=== PATIENT | male | born 1970 | race Caucasian/White ===

== ENCOUNTER → 2016-12-16 | Day surgery (SDC) | payer OTHER ==
[2016-12-15 08:18] VITALS: Ht 177.8 cm; Wt 98.2 kg
[~2016-12-16] VITALS: Ht 177.8 cm; Wt 98.2 kg
[~2016-12-16] MED LIST: 500ML BSSPLUS 0.5ML EPI1:1000 IRRIG ONE; ACETAMINOPHEN 325 MG TAB PO PRN; ATROPINE SULFATE 0.1 MG/ML 5ML SYR IV PRN; ATROPINE SULFATE 1% OP OINT PER APPLICATION CHARGE ONE; BSS FLUSH ONE; BUPIVACAINE HCL 0.75% 10 ML AMP/VIAL ONE; CEFAZOLIN SOD 1 GM VIAL ONE; DEXAMETHASONE SOD INJ 4 MG/ML VIAL ONE; EpHEDrine SULFATE INJ 50 MG/ML AMP IV PRN; EpINEphrine INJ 1MG/ML AMP 1 MG/ML AMP ONE; FENTANYL CITRATE INJ 50 MCG/1 ML 2 ML VIAL IV PRN; FENTANYL CITRATE INJ 50 MCG/1 ML 2 ML VIAL ONE; FLUMAZENIL 0.1 MG/1 ML 10 ML VIAL IV PRN; HYALURONIDASE HUMAN 150 UNIT/ML INJ ONE; HYDROmorphone INJ 2 MG/ML SYR/VIAL IV PRN; LABETALOL HCL IV 5 MG/ML 20ML IV PRN; LACTATED RINGER'S 1000ML 500 ML IV SCH; LIDOCAINE HCL 2% 2 ML VIAL (20MG/ML) ONE; LIDOCAINE MPF 4% INJ INJ ONE; MEPERIDINE HCL 25 MG/ML CARP IV PRN; MIDAZOLAM HCL 1 MG/ML 2ML VIAL ONE; NALOXONE HCL 0.4 MG/1 ML VIAL/CARP IV PRN; NEOMYCIN/POLYMYX/DEXAMETH OP OINT PER APP CHARGE ONE; OCUCOAT 1 ML SOLN IO ONE; ONDANSETRON INJ 2 MG/ML 2 ML VIAL IV PRN; ONDANSETRON INJ 2 MG/ML 2 ML VIAL ONE; PHENYLEPHRINE 100MCG/ML 5ML SYR IV PRN; PROPARACAINE 0.5% OP SOLN PER DROP CHARGE OPR SCH; PROPOFOL IV EMULSION 10 MG/ML 20 ML VIAL IV ONE; TIMOLOL MALEATE 0.5% OP SOLN PER DROP CHARGE ONE; TRIAMCINOLONE ACETONIDE OPHTH 40 MG/ML VIAL STERILE IO ONE
[2016-12-16] MEDS: PHENYLEPHRINE HCL 2.5% OP SOLN PER DROP CHARGE OPR SCH ×2 (12:40→12:45)
[2016-12-16] MEDS: TROPICAMIDE 1% OP SOLN PER DROP CHARGE OPR SCH ×2 (12:41→12:46)
--- NOTE | 2016-12-16 13:32 | History & Physical Bridge - [place] ---
H&P Re-Evaluation Bridge Note: Pt has a retinal detachment of the right eye and is having vitrectomy in the right eye. I have examined the patient, reviewed the History & Physical and in the interval since the performance of the History & Physical I have noted the following changes of clinical significance: No changes noted
--- NOTE | 2016-12-16 14:45 | [facility] Operative Report ---
Operative Report PREOPERATIVE DIAGNOSIS: Total retinal detachment, right eye eye. ICD 10: H33.011 POSTOPERATIVE DIAGNOSIS: same. PROCEDURE: 1. Pars plana vitrectomy, 23 gauge. 2. Fluid-air exchange. 3. Endolaser. 4. Air-gas exchange with SF6 20%. All to the right eye. CPT CODE: 30223 SURGEON: Sean May D.O. COMPLICATIONS: None. ESTIMATED BLOOD LOSS: None. SPECIMENS: None. ANESTHESIA: Retrobulbar block and MAC. INDICATIONS FOR PROCEDURE: Surgery is indicated to decrease risk of vision loss and potentially improve vision. CONSENT: The risks, benefits and alternatives were discussed with the patient including but not limited to decreased visual acuity, failure to achieve desired results, loss of the eye, infection, pain, glaucoma, lens changes, retinal tears, retinal detachment, the need for more procedures, drooping of the eyelid, blindness, and double vision. The patient is aware of risks and consents to the surgery. Consent is signed and on the chart. OPERATION AND FINDINGS: The patient was brought to the operating room where the patient was identified by name, date, and medical record number. The surgical site was confirmed with the informed written consent. The patient was sedated by the anesthesiology team after which a 50:50 mixture of 4% lidocaine and 0.75% bupivacaine with hyaluronidase was administered in a standard retrobulbar fashion. A total of 4 ml was administered without difficulty. The patient was then prepped and draped in the usual sterile manner for retinal surgery. A wire lid speculum was placed and an Asael 23-gauge trocar cannula system was employed. The inferior temporal trocar cannula was first placed in an angled fashion 3.75mm posterior to the surgical limbus and the infusion cannula was inserted into this cannula after which the intravitreal position was verified prior to turning the infusion on. Two more trocar cannulas were then inserted in an angled fashion, one in the superior temporal, and one in the superior nasal quadrant both 3.75mm posterior to the surgical limbus. A light pipe and vitrector were then introduced into the eye and the BIOM wide angle viewing system was brought into place. Posterior inspection revealed a total retinal detachment with the inciting retinal break at 12 o'clock. Standard core vitrectomy was performed and the vitreous was insured to be totally detached from the posterior pole with the aid of the vitrector. The vitreous base was shaved for 360 degrees. At this point scleral depression was performed for 360 degrees and no other retinal tears were noted. Fluid air exchange was performed and the subretinal fluid was drained through a small retinotomy site that was fashioned superior to the optic nerve. Endolaser was then used to place laser around the inciting retinal break and the drainage retinotomy and superior nasally due to a questionable area posterior to a meridional fold. Next, an air gas exchange was performed with SF620% for a complete fill of the eye. The trocar cannulas were then removed and found to be air tight. The intraocular pressure was found to be within normal limits by palpation and subconjunctival injections of Kefzol and dexamethasone were administered inferiorly and superiorly. The wire lid speculum was removed. Maxitrol, atropine and timolol were applied to the surface of the eye. A light patch and shield were taped over the surface of the eye and the patient left the Operating Room in stable condition having tolerated the procedure well. DISPOSITION: A gas bracelet was placed on the patient's wrist and gas precautions reviewed as well as the positioning instructions. The patient has an appointment the following morning in the Ophthalmology Clinic. The patient is to call immediately if there are any problems overnight. I attest to the content of the Intraoperative Record and any orders documented therein. Any exceptions are noted below.
--- NOTE | 2016-12-16 14:47 | Discharge Instructions-SurgCtr ---
Discharge Instructions Visit Reason for Visit: Right Eye Retinal Detachment Discharge Discharge Diagnosis / Problem: same Discharge Goals Goal(s): Improve function Activity Recommendations Activity Limitations: per Instructions/Follow-up section Anesthesia . Post Anesthesia Instructions: If you have had General Anesthesia or IV Sedation: * Do not drive today. * Resume driving when surgeon permits. * Do not make important decisions or sign legal documents today. * Call surgeon for: 1. Temperature elevations greater than 101 degrees F. 2. Uncontrollable pain. 3. Excessive bleeding. 4. Persistent nausea and vomiting. 5. Medication intolerance (nausea, vomiting or rash). * For nausea and vomiting use only clear liquids such as: tea, soda, bouillon until nausea subsides, then gradually increase diet as tolerated. * If you have any concerns or questions, call your surgeon's office. If physician is unavailable and it is an emergency, call 911 or go to the nearest emergency room. . Instructions / Follow-Up Instructions / Follow-Up * May take Tylenol if needed for discomfort. * Do NOT lay flat on back and position head as follows: face forward,chin down or face down. May sleep on right side with head elevated. * Do NOT remove green bracelet until instructed to do so by your surgeon and follow these precautions: * No air travel * No travel above 2500 feet * No nitrous oxide (N2O). * Do NOT remove eye shield. * NO straining, heavy lifting (>15 pounds) or bending below waist. * Avoid getting water or soap directly into operative eye. * Do NOT rub eye. If you experience increasing eye pain not relieved by medication, please contact us immediately at [phone]. If you are unable to reach someone at the above number, call [phone] and ask to speak with the EYE DOCTOR DOOR PATCHER. Inform them that you are a Dr. May patient who had recent surgery. Diet Recommendations Home Diet: resume previous diet Procedures Procedures Performed: Right Eye 23 Gauge Vitrectomy, Endolaser, SF6Gas Insertion Pending Studies Studies pending at discharge: no Medical Emergencies . Who to Call and When: Medical Emergencies: If at any time you feel your situation is an emergency, please call 911 immediately. . Non-Emergent Contact Non-Emergency issues call your: Cardiac Catheterization Technologist . . "Provider Documentation" section prepared by Sean May.
--- NOTE | 2016-12-16 14:57 | Anesthesia Progress Nt - [facility] ---
Anesthesia Post Op Note Date & Time Dec 16, 2016 at 14:57 Vital Signs Pain Intensity: 0 Vital Signs Past 12 Hours Date Time Temp Pulse Resp B/P Pulse Ox O2 Delivery O2 Flow Rate FiO2 12/16/16 14:40 36.6 86 16 136/98 93 Room Air 12/16/16 12:34 37.0 77 20 151/95 96 Room Air Notes Mental Status: alert / awake / arousable, participated in evaluation Pt Amnestic to Procedure: Yes Nausea / Vomiting: adequately controlled Pain: adequately controlled Airway Patency, RR, SpO2: stable & adequate BP & HR: stable & adequate Hydration State: stable & adequate Anesthetic Complications: no major complications apparent
[2016-12-16 15:07] VITALS: BP 127/96; PULSE 80; O2SAT 94
== END | disposition home or self-care (01) ==
LOC: X.SURG 12:13
PROVIDERS: ATTEND Ophthalmology
DX: H33.051 Total retinal detachment, right eye (principal)

== ENCOUNTER 2021-05-30 00:26 | Inpatient (IN) ==
[2021-05-30] MEDS ORDERED: ASPIRIN 81 MG CHEW PO STA (00:53)
[2021-05-30] MEDS ORDERED: LABETALOL HCL IV 5 MG/ML 20ML IV STA (00:53)
--- NOTE | 2021-05-30 00:57 | Emergency Department Note ---
Impression & Plan Non-ST elevation RI (NSTEMI), Acute renal insufficiency, Hypertension ED Provider Note Name: MELVI CHEN Age: 50 Sex: M Arrives Via: Walk-In Informant: Patient ED Provider: Ismael Valdez MD Chief Complaint: Chest Pain Impression: NSTEMI Acute Renal Insufficiency Hypertension Medical Decision Makin yr old male with history renal colic though no issues for last few days. Does not follow with a PCP. Family history of early cardiac disease in Mother who had CABG at 45 yrs old. He arrives with 30 min episode substernal to left chest pressure/heaviness associated with feeling of difficulty taking a breath. Symptoms resolved prior to arrival. Quite hypertensive and otherwise a bit anxious. Exam benign with good pulses and benign abdomen. EKG with no STEMI though frequent PCVs/PACs/bigeminy. Given ASA 324mg PO and small dose Labetalol for HTN with gradual improvement in BP. Post Labetalol rhythm clearly NSR with far less PAC/PVCs. CXR without acute findings and has normal mediastinum. Labs quite lipemic thus unable to run several. Creatinine is a bit bumped of uncertain etiology. Denies flank pain like previous stones, not overtly dehydrated, and no abdominal pain/ttp nor urinary symptoms. Troponin is elevated consistent with recent cardiac event. While Cr may be somewhat to blame risks are quite high this is ACS. Given familial history, and untreated HTN, hyperlipidemia in setting of relatively classic chest pain symptoms, I explained to patient my concern being ACS. No contraindications to Heparin at this time and after verbal consult understanding risks this was ordered. Symptoms not consistent with dissection nor are findings with normal cxr mediastinum, no current pain, no pain to back and normal pulses. Hospitalist consulted for further management. Prior Medical Record and Triage/Nursing Notes reviewed by Me Additional history obtained from chart Differentials:Cardiac ischemia, aortic dissection, pulmonary embolism, pneumothorax, pneumonia, pericarditis, myocarditis, esophageal rupture, GERD, cholecystitis, pancreatitis, musculoskeletal, as well as other pathologies. Vital Signs: reviewed and remarkable for no significant abnormalities Interventions: Saline lock, labetalol 10mg IV, ASA 324mg PO, Heparin bolus/gtt Labs:Reviewed and remarkable for elevated cr, elevated trop Imaging:X ray results are stated below per my interpretation: Chest: 1 view: No infiltrate, no effusion, normal cardiac border. EKG:Per My Interpretation: Indication Chest pain: NSR though 102 bpm including frequent PAC/PVC, bigeminy and qtc 458. No stemi appreciated, and no previous EKG for review. Cardiac/Tele Monitoring: Cardiac Monitoring: An Order was placed for continuous cardiac monitoring. The monitor shows a rate of 80 with a normal sinus rhythm. Consults:Dr Ranjit RICARDO Hospitalist Plan: Disposition:Hospitalization. Condition: Good History of Present Illness:50 yr old male arrives for evaluation of chest pain. Patient notes he was feeling well the last few days. Was going to bed tonight and developed chest pain. He notes tight chest pain like something sitting on his chest. Left upper and substernal. Mild feeling of difficulty taking a deep breath and had palpitations. Denies syncope, lightheaded, abdominal pain, flank pain, fevers, chills, urinary symptoms, nausea, vomiting, back pain, calf pain/swelling, nor other symptoms. No recent black/bloody stools, headache, bleeding, nor PUD/GERD. No previous cardiac issues. Significant other checked BP and it was elevated with SBP > 200. En route to hospital symptoms resolved. He did Tylenol prior to arrival. No previous cardiac work up. No smoking history. Mother with RI in her 40s requiring CABG. No trauma/falls/injuries. No recent travel. Nothing seemed to make pain worse nor better. ROS: See above HPI for pertinent positives & negatives. A total of 10 systems reviewed and were otherwise negative. 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 EYES: No scleral icterus, unremarkable pupils. ENT: Mucous membranes moist, no nasal congestion. NECK: No masses appreciated, nomeningismus, trachea is midline. RESPIRATORY: No dyspnea. Clear to auscultation and equal bilaterally. No wheeze, no rhonchi. CARDIOVASCULAR: Regular rate and rhythm with periodic skipped/extra beats.No murmurs, rubs, gallops appreciated. GASTROINTESTINAL: Abdomen soft, non-tender, no peritonitis.Bowel sounds positive.No masses appreciated. BACK: No midline tenderness, no CVA tenderness EXTREMITIES: Normal motion all extremities, no cyanosis, no edema. NEUROLOGIC: Alert and oriented, no acute motor or sensory deficits, no focal weakness, cranial nerves grossly intact. SKIN: No rash, no jaundice, no diaphoresis. PSYCH: Appropriate GCS: 15 ED Course: Times/Reassessments: No further pain, a bit anxious about situation. BP improving. Agreeable to heparin and hospitalization. Critical Care: I have personally spent 30 minutes of critical care time in the direct management of this patient. Acute NSTEMI and started on heparin. This was a life/limb threatening event. This 30 minutes is in excess of all separately billable procedures. 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: No Beliefs That Will Affect Care: None Current Living Situation: Significant Other Feels Safe at Home: Yes Assistive Devices: None Allergies Allergies Allergy/AdvReac Type Severity Reaction Status Date / Time No Known Allergies Allergy Mild Unverified 05/30/21 02:30 Home Meds Home Medications Medication Instructions Recorded Confirmed acetaminophen 500 mg tablet 1,000 mg PO Q6H PRN 05/30/21 05/30/21 (Tylenol Extra Strength) Results & Data (ED) Vital Signs Vital Signs - 24 hr 05/30/21 00:31 05/30/21 00:42 05/30/21 01:11 Temperature 36.6 C Temperature Source Temporal Artery Scan Pulse Rate 75 94 H 91 H Respiratory Rate 20 21 13 Blood Pressure 245/146 H 216/114 H 198/114 H Blood Pressure Mean 179 148 142 Pulse Oximetry 98 Oxygen Delivery Method Room Air Sepsis Recent Fever Within 48 Hours No Sepsis New/Unexplained Change in Mental Status N/A Sepsis Action Taken by Nursing No Action Required 05/30/21 01:30 05/30/21 02:00 05/30/21 02:30 Temperature Temperature Source Pulse Rate 89 91 H 88 Respiratory Rate 16 19 13 Blood Pressure 173/105 H 148/111 H 160/108 H Blood Pressure Mean 127 123 125 Pulse Oximetry Oxygen Delivery Method Sepsis Recent Fever Within 48 Hours Sepsis New/Unexplained Change in Mental Status Sepsis Action Taken by Nursing 05/30/21 03:00 05/30/21 03:30 Temperature Temperature Source Pulse Rate 88 91 H Respiratory Rate 15 19 Blood Pressure 168/114 H 157/115 H Blood Pressure Mean 132 129 Pulse Oximetry Oxygen Delivery Method Sepsis Recent Fever Within 48 Hours Sepsis New/Unexplained Change in Mental Status Sepsis Action Taken by Nursing Laboratory Data Result diagrams: 05/30/21 00:40 05/30/21 02:28 Lab Results 05/30/21 05/30/21 05/30/21 Range/Units 00:40 00:40 01:06 WBC 8.04 (4.8-10.8) K/uL RBC 5.59 (4.7-6.1) M/uL Hgb 16.8 (14.0-18.0) g/dL Hct 49.1 (42-52) % MCV 87.8 (80-100) fL MCH 30.1 (25-34) pg MCHC 34.2 (32-36) g/dL RDW Std Deviation 41.8 (36.4-46.3) fL RDW Coeff of Kenji 13.0 (11.5-14.5) % Plt Count 202 (130-400) K/uL MPV 12.1 H (7.4-10.4) fL Immature Gran % (Auto) 0.2 % Neut % (Auto) 46.4 % Lymph % (Auto) 37.8 % Barnes % (Auto) 10.8 % Eos % (Auto) 4.2 % Baso % (Auto) 0.6 % Neut # (Auto) 3.72 (1.4-6.5) K/uL Lymph # (Auto) 3.04 (1.2-3.4) K/uL Barnes # (Auto) 0.87 H (0.11-0.59) K/uL Eos # (Auto) 0.34 (0-0.5) K/uL Baso # (Auto) 0.05 (0-0.2) K/uL Immature Gran # (Auto) 0.02 (0.00-0.02) K/uL Absolute Nucleated RBC 0.06 H (0-0) K/uL Nucleated RBC % (auto) 0.8 % Sodium 140 (136-145) mmol/L Potassium (3.5-5.1) mmol/L Chloride 108 H (98-107) mmol/L Carbon Dioxide 28 (21-32) mmol/L Anion Gap 4.0 (3-11) BUN 20 H (7-18) mg/dl Creatinine 1.82 H (0.6-1.4) mg/dl Est Cr Clr Drug Dosing 60.9 ml/min Est GFR ( Amer) 49.1 ml/min Est GFR (Non-Af Amer) 42.4 ml/min BUN/Creatinine Ratio 11.0 (10-20) Glucose 127 H (70-99) mg/dl Calcium 8.5 (8.5-10.1) mg/dl Total Bilirubin 0.6 (0.2-1) mg/dl Direct Bilirubin TNP AST (15-37) U/L ALT 48 (12-78) U/L Alkaline Phosphatase 118 H (45-117) U/L Troponin I 0.073 H* (0-0.045) ng/ml Total Protein 7.7 (6.4-8.2) gm/dl Albumin 3.5 (3.4-5.0) gm/dl Triglycerides (0-150) mg/dl Cholesterol (0-200) mg/dl LDL Cholesterol, Calc mg/dl VLDL Cholesterol, Calc mg/dl HDL Cholesterol mg/dl Cholesterol/HDL Ratio Lipase 231 (73-393) U/L Specimen Hemolysis COVID-19 Eval Order Covid19 at [facility] SARS-CoV-2 (PCR) (Negative) 05/30/21 05/30/21 05/30/21 Range/Units 01:06 02:28 02:28 WBC (4.8-10.8) K/uL RBC (4.7-6.1) M/uL Hgb (14.0-18.0) g/dL Hct (42-52) % MCV (80-100) fL MCH (25-34) pg MCHC (32-36) g/dL RDW Std Deviation (36.4-46.3) fL RDW Coeff of Kenji (11.5-14.5) % Plt Count (130-400) K/uL MPV (7.4-10.4) fL Immature Gran % (Auto) % Neut % (Auto) % Lymph % (Auto) % Barnes % (Auto) % Eos % (Auto) % Baso % (Auto) % Neut # (Auto) (1.4-6.5) K/uL Lymph # (Auto) (1.2-3.4) K/uL Barnes # (Auto) (0.11-0.59) K/uL Eos # (Auto) (0-0.5) K/uL Baso # (Auto) (0-0.2) K/uL Immature Gran # (Auto) (0.00-0.02) K/uL Absolute Nucleated RBC (0-0) K/uL Nucleated RBC % (auto) % Sodium (136-145) mmol/L Potassium 4.4 (3.5-5.1) mmol/L Chloride (98-107) mmol/L Carbon Dioxide (21-32) mmol/L Anion Gap (3-11) BUN (7-18) mg/dl Creatinine (0.6-1.4) mg/dl Est Cr Clr Drug Dosing ml/min Est GFR ( Amer) ml/min Est GFR (Non-Af Amer) ml/min BUN/Creatinine Ratio (10-20) Glucose (70-99) mg/dl Calcium (8.5-10.1) mg/dl Total Bilirubin (0.2-1) mg/dl Direct Bilirubin AST 28 (15-37) U/L ALT (12-78) U/L Alkaline Phosphatase (45-117) U/L Troponin I (0-0.045) ng/ml Total Protein (6.4-8.2) gm/dl Albumin (3.4-5.0) gm/dl Triglycerides 904 H (0-150) mg/dl Cholesterol 193 (0-200) mg/dl LDL Cholesterol, Calc mg/dl VLDL Cholesterol, Calc mg/dl HDL Cholesterol 26 mg/dl Cholesterol/HDL Ratio 7 Lipase (73-393) U/L Specimen Hemolysis COVID-19 Eval Order SARS-CoV-2 (PCR) NEGATIVE (Negative) Administered Medications Heparin Sodium/Dextrose (Heparin Sodium/Dextrose) 25,000 units in 500 mls @ 32 mls/hr IV .[id number] [facility]; Protocol Stop: 06/29/21 02:44 Last Admin: 05/30/21 02:40 Dose: 1,600 units/hr, 32 mls/hr Documented by: [id number] Cosigned by: [id number] Discontinued Medications Aspirin (Aspirin 81 Mg Chew) 324 mg PO NOW STA Stop: 05/30/21 00:54 Last Admin: 05/30/21 01:00 Dose: 324 mg Documented by: [id number] Heparin Sodium (Porcine) (Heparin Sod (Porcine) 1000 Unit/Ml) 1 units IV NOW ONE Stop: 05/30/21 02:40 Last Admin: 05/30/21 02:40 Dose: 5,000 units Documented by: [id number] Cosigned by: [id number] Heparin Sodium/Dextrose (Heparin Iv Adult Wt-Based Standard With Bolus Protocol) 1 ea IV NOW STA; Protocol Stop: 05/30/21 02:24 Last Admin: 05/30/21 02:42 Dose: Not Given Documented by: [id number] Sodium Chloride (Nss 1000ml) 1,000 mls @ 999 mls/hr IV .Q1H1M RAHEEM Stop: 05/30/21 04:29 Last Infusion: 05/30/21 04:52 Dose: 0 mls/hr Documented by: [id number] Admin: 05/30/21 03:51 Dose: 999 mls/hr Documented by: [id number] Labetalol HCl (Labetalol Hcl Iv 5 Mg/Ml 20ml) 10 mg IV NOW STA Stop: 05/30/21 00:54 Last Admin: 05/30/21 00:59 Dose: 10 mg Documented by: [id number] Cosigned by: [id number] Metoprolol Succinate (Metoprolol Succ 50mg Ext Rel Tab) 50 mg PO NOW STA Stop: 05/30/21 03:31 Last Admin: 05/30/21 03:56 Dose: 50 mg Documented by: [id number] Metoprolol Tartrate (Metoprolol Tartrate 1 Mg/Ml Vial) 5 mg IV NOW STA Stop: 05/30/21 03:31 Last Admin: 05/30/21 03:50 Dose: 5 mg Documented by: [id number] Discharge Plan Visit Data Chief Complaint: Chest Pain Stated Complaint: CHEST PAIN, HIGH BLOOD PRESSURE ED Provider: Ismael Valdez Discharge Problem: Non-ST elevation RI (NSTEMI), Acute renal insufficiency, Hypertension Patient Disposition: Admitted As Inpatient Discharge Instructions Interventions: ED Discharge Assessment Last Done: 05/30/21 05:51 Discharge Problem: Hypertension Qualifiers: Hypertension type: primary hypertension Qualified Code(s): I10 - Essential (primary) hypertension
[2021-05-30 01:04] LABS: Basophils # (auto) 0.05 K/uL (0-0.2); Basophils % (auto) 0.6 %; Eosinophils # (auto) 0.34 K/uL (0-0.5); Eosinophils % (auto) 4.2 %; Hematocrit (blood only) 49.1 % (42-52); Hemoglobin 16.8 g/dL (14.0-18.0); Immature Granulocytes # (auto) 0.02 K/uL (0.00-0.02); Immature Granulocytes % (auto) 0.2 %; Lymphocytes # (auto) 3.04 K/uL (1.2-3.4); Lymphocytes % (auto) 37.8 %; Mean Corpuscular Hemoglobin 30.1 pg (25-34); Mean Corpuscular Hgb Conc 34.2 g/dL (32-36); Mean Corpuscular Volume 87.8 fL (80-100); Mean Platelet Volume 12.1 fL (7.4-10.4); Monocytes # (auto) 0.87 K/uL (0.11-0.59); Monocytes % (auto) 10.8 %; Neutrophils # (auto) 3.72 K/uL (1.4-6.5); Neutrophils % (auto) 46.4 %; Nucleated RBC # (auto) 0.06 K/uL (0-0); Nucleated RBC % (auto) 0.8 %; Platelet Count 202 K/uL (130-400); RDW Standard Deviation 41.8 fL (36.4-46.3); Red Blood Count 5.59 M/uL (4.7-6.1); White Blood Count 8.04 K/uL (4.8-10.8)
[2021-05-30 02:14] LABS: Alanine Aminotransferase 48 U/L (12-78); Albumin Level 3.5 gm/dl (3.4-5.0); Alkaline Phosphatase 118 U/L (45-117); Bilirubin,Total 0.6 mg/dl (0.2-1); Blood Urea Nitrogen 20 mg/dl (7-18); Calcium 8.5 mg/dl (8.5-10.1); Carbon Dioxide 28 mmol/L (21-32); Chloride 108 mmol/L (98-107); Creatinine Clr Calc Pharmacy 60.9 ml/min; Est GFR (African American) 49.1 ml/min; Est GFR (Non-African American) 42.4 ml/min; Glucose 127 mg/dl (70-99); Lipase 231 U/L (73-393); Sodium 140 mmol/L (136-145); Total Protein 7.7 gm/dl (6.4-8.2); Troponin I 0.073 ng/ml (0-0.045)
[2021-05-30] MEDS ORDERED: Heparin IV Adult Wt-Based Standard WITH Bolus Protocol IV STA (02:23)
[2021-05-30] MEDS ORDERED: HEPARIN SOD (PORCINE) 1000 UNIT/ML IV ONE (02:39)
[2021-05-30] MEDS ORDERED: HEPARIN SODIUM/DEXTROSE 25,000 UNITS/500 ML BAG IV SCH (02:45)
[2021-05-30 03:18] LABS: Potassium 4.4 mmol/L (3.5-5.1)
[2021-05-30] MEDS ORDERED: SODIUM CHLORIDE 0.9% 1000ML 1,000 ML IV SCH (03:29)
[2021-05-30] MEDS ORDERED: METOPROLOL SUCC 50MG EXT REL TAB PO STA (03:30)
[2021-05-30] MEDS ORDERED: METOPROLOL TARTRATE 1 MG/ML VIAL IV STA (03:30)
[2021-05-30 04:03] LABS: Appearance Urine Clear (Clear); Bilirubin Urine Negative (Negative); Blood Urine Negative (Negative); Color Urine Yellow; Glucose Urine UA Negative (Negative); Ketones Urine Negative (Negative); Leukocyte Esterase Urine Negative (Negative); Nitrite Urine Negative (Negative); Protein Urine Negative (Negative); Specific Gravity Urine 1.011 (1.000-1.030); Urobilinogen Urine Negative (Negative)
--- NOTE | 2021-05-30 04:09 | History & Physical Report ---
Date of Service May 30, 2021 Assessment & Plan (1) Elevated troponin I level: Plan: Elevated troponin I level/uncontrolled hypertension The patient will be admitted to telemetry for serial cardiac enzymes, serial EKG's, cardiac rhythm monitoring and a 2-D echocardiogram with Dopplers. Patient received labetalol 10 mg IV from the ED with some improvement in blood pressure Give Lopressor 5 mg IV now, metoprolol succinate 50 mg p.o. now, and start Nitropaste 1 inch anterior chest wall every 6 hours. Start metoprolol succinate 50 mg p.o. twice daily at 9:00 Received aspirin 324 mg in the ED. Continue aspirin 81 mg every morning Check a fasting lipid panel Consult cardiology (2) Uncontrolled hypertension: Plan: See above (3) Renal insufficiency: Plan: Creatinine 1.82 upon admission, with estimated creatinine clearance for drug dosing 60.9, and estimated GFR 42.4. No baseline for comparison Give 1 L bolus of normal saline now Recheck BMP around 8:00 AM this morning to see which direction creatinine is going. Check a CT of abdomen pelvis without contrast Check a random urine microalbumin (4) Hyperglycemia: Plan: Glucose 127 upon admission. Check hemoglobin A1c (5) History of kidney stones: Plan: No complaint of flank pain or dysuria. We will be checking a CT scan of abdomen and pelvis without contrast to assess for potential cause of renal insufficiency History of Present Illness Chief Complaint: The patient presents to the emergency department with complaint of acute onset of substernal chest discomfort, radiating from lower sternum to upper sternal, that occurred shortly after going to bed at 1130 this evening. Primary Care Provider: NO PCP The patient is a 50-year-old male with PMH significant for kidney stone a few years ago, who presents to the emergency department after developing acute onset of severe substernal chest discomfort shortly after going to bed this evening. He had his check his blood pressure at that time, and the systolic number was over 200s. He had not had his blood pressure checked since he had kidney stone assessment few years ago, and it was normal at that time. Patient denies any change in usual activities, dietary patterns or exercise patterns. He did have a cookout yesterday, but reports that he did keep up with his fluid intake. Significant laboratory work-up in the emergency department includes the following: Creatinine 1.82, glucose 127, troponin 0.073. COVID-19 test was negative. Initial vital signs in the emergency department while chest pain was still present, was 245/146, for which patient received labetalol 10 mg IV and aspirin 325 mg x 1. He was then started on heparin IV following bolus as ordered by the emergency department. Prior to leaving the emergency department, additional medication orders placed by me: Lopressor 5 mg IV x1 now, metoprolol succinate 50 mg p.o. x1 now, nitroglycerin paste, 1 inch anterior chest wall every 6 hours, and normal saline 1 L bolus. Allergies Allergy/AdvReac Type Severity Reaction Status Date / Time No Known Allergies Allergy Mild Unverified 05/30/21 02:30 Home Medications Medication Instructions Recorded Confirmed Type acetaminophen 500 mg tablet 1,000 mg PO Q6H PRN 05/30/21 05/30/21 History (Tylenol Extra Strength) Past Med/Surg History Medical History (Updated 05/30/21 @ 04:01 by Nba Church MD) History of kidney stones Social History Smoking Status: Never smoker Feels Safe at Home: Yes Review of Systems Review of Systems: The patient denies palpitations, shortness of breath, dyspnea on exertion, cough, lower extremity swelling, sore throat, fevers, chills, sweats, weight change, fatigue, nausea, vomiting, diarrhea , constipation, abdominal pain, pelvic pain, blood in urine or stool, dysuria, urinary frequency or urgency, lightheadedness, dizziness, headache, memory loss, loss of consciousness, rash, abnormal bruising or bleeding, imbalance, focal or generalized weakness, numbness or tingling in arms or legs, generalized arthralgias or myalgias, back or neck pain, or night sweats. The review of systems is otherwise negative other than for that already noted above, and at least 10 systems have been reviewed. Physical Exam Physical Exam: The patient is awake, alert and oriented 3, well developed and well nourished, normocephalic and atraumatic, lying in bed and in no acute distress. HEENT--PERRL, EOMI, mucous membranes and oropharynx dry. Neck--supple. No JVD. No bruits. Thyroid normal, trachea midline, no adenopathy. Heart--normal S1 and S2. No murmurs, rubs or gallops. Lungs--clear bilaterally, no respiratory distress, no accessory muscle use. Abdomen--normal bowel sounds and soft. Nontender. Nondistended. Mildly obese Extremities--no cyanosis or clubbing. No edema. Dermatologic--normal skin turgor, normal color, no abnormal lymph nodes, no rash. Neurologic--cranial nerves II through XII grossly intact. Rheumatologic--normal range of motion. Psychiatric--normal affect. Results & Data Results & Data ([facility]) Vital Signs (Past 12 Hours) Vital Signs Temp Pulse Resp BP Pulse Ox 05/30/21 03:00 88 15 168/114 H 05/30/21 02:30 88 13 160/108 H 05/30/21 02:00 91 H 19 148/111 H 05/30/21 01:30 89 16 173/105 H 05/30/21 01:11 91 H 13 198/114 H 05/30/21 00:42 94 H 21 216/114 H 05/30/21 00:31 97.9 F 75 20 245/146 H 98 Diagnostic Findings Laboratory Results WBC 8.04 K/uL (4.8-10.8) 05/30/21 00:40 RBC 5.59 M/uL (4.7-6.1) 05/30/21 00:40 Hgb 16.8 g/dL (14.0-18.0) 05/30/21 00:40 Hct 49.1 % (42-52) 05/30/21 00:40 MCV 87.8 fL (80-100) 05/30/21 00:40 MCH 30.1 pg (25-34) 05/30/21 00:40 MCHC 34.2 g/dL (32-36) 05/30/21 00:40 RDW Std Deviation 41.8 fL (36.4-46.3) 05/30/21 00:40 RDW Coeff of Kenji 13.0 % (11.5-14.5) 05/30/21 00:40 Plt Count 202 K/uL (130-400) 05/30/21 00:40 MPV 12.1 fL (7.4-10.4) H 05/30/21 00:40 Immature Gran % (Auto) 0.2 % 05/30/21 00:40 Neut % (Auto) 46.4 % 05/30/21 00:40 Lymph % (Auto) 37.8 % 05/30/21 00:40 Peach % (Auto) 10.8 % 05/30/21 00:40 Eos % (Auto) 4.2 % 05/30/21 00:40 Baso % (Auto) 0.6 % 05/30/21 00:40 Neut # (Auto) 3.72 K/uL (1.4-6.5) 05/30/21 00:40 Lymph # (Auto) 3.04 K/uL (1.2-3.4) 05/30/21 00:40 Peach # (Auto) 0.87 K/uL (0.11-0.59) H 05/30/21 00:40 Eos # (Auto) 0.34 K/uL (0-0.5) 05/30/21 00:40 Baso # (Auto) 0.05 K/uL (0-0.2) 05/30/21 00:40 Immature Gran # (Auto) 0.02 K/uL (0.00-0.02) 05/30/21 00:40 Absolute Nucleated RBC 0.06 K/uL (0-0) H 05/30/21 00:40 Nucleated RBC % (auto) 0.8 % 05/30/21 00:40 Sodium 140 mmol/L (136-145) 05/30/21 00:40 Potassium 4.4 mmol/L (3.5-5.1) 05/30/21 02:28 Chloride 108 mmol/L (98-107) H 05/30/21 00:40 Carbon Dioxide 28 mmol/L (21-32) 05/30/21 00:40 Anion Gap 4.0 (3-11) 05/30/21 00:40 BUN 20 mg/dl (7-18) H 05/30/21 00:40 Creatinine 1.82 mg/dl (0.6-1.4) H 05/30/21 00:40 Est Cr Clr Drug Dosing 60.9 ml/min 05/30/21 00:40 Est GFR ( Amer) 49.1 ml/min 05/30/21 00:40 Est GFR (Non-Af Amer) 42.4 ml/min 05/30/21 00:40 BUN/Creatinine Ratio 11.0 (10-20) 05/30/21 00:40 Glucose 127 mg/dl (70-99) H 05/30/21 00:40 Calcium 8.5 mg/dl (8.5-10.1) 05/30/21 00:40 Total Bilirubin 0.6 mg/dl (0.2-1) 05/30/21 00:40 Direct Bilirubin mg/dl (0-0.2) 05/30/21 02:28 AST 28 U/L (15-37) 05/30/21 02:28 ALT 48 U/L (12-78) 05/30/21 00:40 Alkaline Phosphatase 118 U/L (45-117) H 05/30/21 00:40 Troponin I 0.073 ng/ml (0-0.045) H* 05/30/21 00:40 Total Protein 7.7 gm/dl (6.4-8.2) 05/30/21 00:40 Albumin 3.5 gm/dl (3.4-5.0) 05/30/21 00:40 Lipase 231 U/L (73-393) 05/30/21 00:40 Specimen Hemolysis 05/30/21 02:28 COVID-19 Eval Order Covid19 at [facility] 05/30/21 01:06 SARS-CoV-2 (PCR) NEGATIVE (Negative) 05/30/21 01:06 Code Status & VTE Plan Code Status Full code VTE Prophylaxis Plan VTE Prophylaxis will be ordered: Yes PG Care Time/CCT Total # of Minutes Spent Total Time Spent with Patient: Total time spent is greater than 50% in coordination of care (as documented) at patient's floor/unit and/or counseling patient: Coding Level of Care Code 63057 Initial Inpt Care Lvl 3 Diagnoses Elevated troponin I level R77.8 Renal insufficiency N28.9 History of kidney stones Z87.442 Hyperglycemia R73.9 Uncontrolled hypertension I10
[2021-05-30 04:42] LABS: Chol HDL Ratio 7; Cholesterol 193 mg/dl (0-200); HDL Cholesterol 26 mg/dl; Triglycerides 904 mg/dl (0-150)
[2021-05-30] MEDS ORDERED: ONDANSETRON INJ 2 MG/ML 2 ML VIAL IV PRN (05:47)
[2021-05-30] MEDS ORDERED: ACETAMINOPHEN 325 MG TAB PO PRN (05:47)
[2021-05-30] MEDS ORDERED: MoRPHine SULFATE 2 MG/ML CARP IV PRN (05:47)
[2021-05-30] MEDS: NITROGLYCERIN 2% OINTMENT 30GM TUBE EXT SCH ×2 (06:53→12:15)
--- NOTE | 2021-05-30 08:00 | CT Scan Report ---
CT OF THE ABDOMEN AND PELVIS WITHOUT CONTRAST CLINICAL HISTORY: Renal insufficiency. COMPARISON STUDY: CT of the abdomen and January 18, 2013. TECHNIQUE: Axial images of the abdomen and pelvis were obtained without IV contrast. Images were revi ewed in the axial, sagittal, and coronal planes. Automated exposure control was utilized for the too dy. A dose lowering technique was utilized adhering to the principles of ALARA. FINDINGS: Lung bases are unremarkable. Note is made of a 1.1 cm left ureteropelvic junction calculus slight dilatation of the left renal pelvis without calyceal dilatation. There are small bilateral martir al calculi. A water attenuation 2.3 cm lesion within the midpole of the left kidney is suboptimally a ssessed on this unenhanced exam but favors a cyst. There is a gallstone within the gallbladder withou t evidence for acute cholecystitis. Evaluation of the abdomen and pelvis is suboptimal on this unenha nced exam. The liver, spleen, adrenal glands and pancreas are unremarkable. The appendix is normal. N o evidence for a bowel obstruction. There is no ascites or lymphadenopathy. No acute fracture or susp icious lesion is identified within the visualized skeletal structures. IMPRESSION: 1. 1.1 cm left ureteropelvic junction calculus. Minimal dilatation of the left renal pelvis without c alyceal dilatation. 2. Small bilateral renal calculi. 3. Cholelithiasis. ACT 112: Negative or not required by law. Electronically signed by: Gentry Stoner M.D. 05/30/2021 7:59 AM
[2021-05-30] MEDS: METOPROLOL SUCC 50MG EXT REL TAB PO SCH ×2 (08:35→20:17)
[2021-05-30] MEDS: ASPIRIN 81 MG ECTAB PO SCH (08:35)
--- NOTE | 2021-05-30 08:35 | XRay Report ---
XR chest 1V portable HISTORY: Midsternal chest pain COMPARISON: None. FINDINGS: No pneumothorax. No pleural effusions. The heart remains mildly enlarged. There is mild dif fuse interstitial thickening. This is likely chronic. Otherwise, no focal lung consolidations to sugg est pneumonia. No evidence for pulmonary edema. IMPRESSION: No acute process. ACT 112: Negative or not required by law. Electronically signed by: Kushal Allen M.D. 05/30/2021 8:34 AM
[2021-05-30 09:18] LABS: Partial Thromboplastin Ratio 2.5
[2021-05-30 09:23] LABS: Partial Thromboplastin Time 66.9 Seconds (21.0-31.0)
[2021-05-30 09:30] LABS: BUN Creatinine Ratio 14.6 (10-20); Calcium 8.2 mg/dl (8.5-10.1); Creatinine Clr Calc Pharmacy 82.3 ml/min; Est GFR (African American) 71.1 ml/min; Est GFR (Non-African American) 61.3 ml/min; Potassium 3.5 mmol/L (3.5-5.1)
[2021-05-30 09:36] LABS: Troponin I 0.053 ng/ml (0-0.045)
--- NOTE | 2021-05-30 11:51 | Cardiology Consultation ---
Date of Consultation May 30, 2021 Assessment & Plan (1) Uncontrolled hypertension: -agree with metoprolol succinate. -may need to add another agent. (2) LVH (left ventricular hypertrophy): -moderate in degree on current echocardiogram. -suspect he has had longstanding hypertension. (3) Elevated troponin I level: -secondary to a supply demand mismatch (elevated BP in face of LVH). (4) Dyslipidemia: -would probably start with a statin. History of Present Illness Attending Physician: Gianluca Campos History of Present Illness Mr. Encarnacion is a 50-year-old male admitted earlier today with a chest pain syndrome and accelerated hypertension. This consultation was ordered to assistance cardiac management. The patient claims he was in his usual state of health until approximately 11:30 p.m. last evening. The patient had just laid down in bed and noticed an upper sternal chest discomfort. The patient got out of bed and checked his blood pressure at home. He noticed it to be in the 220/120 range. He became quite alarmed and presented to the emergency room for further care. On arrival here, the patient's blood pressure was 245/146. His creatinine was elevated at 1.82. He was given intravenous labetalol, intravenous metoprolol, and topical nitrates. There was some improvement in his blood pressure. The patient explains that when he typically checks his blood pressure at home, he gets 130/70. The patient does not have a primary care physician. Currently, patient is resting comfortably in bed without complaints. Past medical and surgical history 1. Hypertension 2. Hyperlipidemia 3. Hyperglycemia 4. Nephrolithiasis Social history Single, lives with his significant other Works in a [employer] No tobacco or alcohol Family history Mother had bypass surgery performed in her mid 40s. Review of systems A 10 review systems was negative except for that described above. Allergies Allergy/AdvReac Type Severity Reaction Status Date / Time No Known Allergies Allergy Mild Unverified 05/30/21 02:30 Home Medications Medication Instructions Recorded Confirmed Type acetaminophen 500 mg tablet 1,000 mg PO Q6H PRN 05/30/21 05/30/21 History (Tylenol Extra Strength) Patient History Medical History (Updated 05/30/21 @ 11:53 by Obed Ovalles MD) History of kidney stones Social History Smoking Status: Never smoker Hx Alcohol Use: No Hx Substance Use: No Preferred Language: Portuguese Communication Ability: Effective National Coverage Specialist Required: No Beliefs That Will Affect Care: None Current Living Situation: Significant Other Feels Safe at Home: Yes Assistive Devices: None Physical Exam Physical Exam: In general this is a well-developed well-nourished white male in no acute distress. HEENT exam is negative. Neck is supple with full carotid upstrokes. There are no carotid bruits. Jugular venous pressure is flat at 90. There is no thyromegaly. Cardiovascular exam reveals a regular rhythm with a normal S1 and S2. No S3, S4, or murmurs are noted. Lungs are clear without rales, rhonchi, or wheezes. Abdomen is soft and nontender without bruits. Extremities reveal intact radial artery and posterior tibial pulses bilaterally. There is no peripheral edema. Results & Data ([facility]) Vital Signs (Past 12 Hours) Vital Signs Temp Pulse Pulse Resp BP BP Pulse Ox 05/30/21 08:15 36.7 C 66 18 173/89 H 93 05/30/21 07:35 81 05/30/21 06:20 65 05/30/21 06:04 66 165/91 H 05/30/21 05:47 05/30/21 05:28 36.7 C 75 13 192/95 H 94 05/30/21 04:56 77 17 169/105 H 05/30/21 04:00 82 18 172/100 H 05/30/21 03:50 88 157/115 H 05/30/21 03:30 91 H 19 157/115 H 05/30/21 03:00 88 15 168/114 H 05/30/21 02:30 88 13 160/108 H 05/30/21 02:00 91 H 19 148/111 H 05/30/21 01:30 89 16 173/105 H 05/30/21 01:11 91 H 13 198/114 H 05/30/21 00:42 94 H 21 216/114 H 05/30/21 00:31 36.6 C 75 20 245/146 H 98 Pulse Ox 05/30/21 08:15 05/30/21 07:35 05/30/21 06:20 05/30/21 06:04 05/30/21 05:47 94 05/30/21 05:28 05/30/21 04:56 05/30/21 04:00 05/30/21 03:50 07/18/21 03:30 05/30/21 03:00 05/30/21 02:30 05/30/21 02:00 05/30/21 01:30 05/30/21 01:11 05/30/21 00:42 05/30/21 00:31 Laboratory Results CBC notes hemoglobin 16.8, hematocrit 49.1, white count 8.04, and platelet count of [id number]. Electrolytes note a sodium of 140, potassium 3.5, chloride 108, bicarb 27, BUN 20, creatinine 1.34, glucose of 134. Troponin I level is 0.073. Triglyceride level is 904 with a total cholesterol 193, an HDL low at 26. LDL could not be calculated. Diagnostic Findings EKG notes normal sinus rhythm without abnormalities. Echocardiogram notes normal left ventricular systolic function with ejection fraction of 60-65%. There were no wall motion abnormalities. There is moderate left ventricular hypertrophy. No significant valvular disease. Chest x-ray shows cardiomegaly but no acute disease. PG Care Time/CCT Total # of Minutes Spent Total Time Spent with Patient: Total time spent is greater than 50% in coordination of care (as documented) at patient's floor/unit and/or counseling patient: Coding Level of Care Code 12886 Office/OBS Consult Lvl 4 Diagnoses Uncontrolled hypertension I10 LVH (left ventricular hypertrophy) I51.7 Elevated troponin I level R77.8 Dyslipidemia E78.5
--- NOTE | 2021-05-30 12:48 | XCELERA ---
[id number]
[2021-05-30 15:26] LABS: Partial Thromboplastin Ratio 2.5
[2021-05-30 15:29] LABS: Partial Thromboplastin Time 66.9 Seconds (21.0-31.0)
--- NOTE | 2021-05-30 20:11 | Hospitalist Progress Note ---
Date of Service May 30, 2021 Assessment & Plan (1) Hypertensive emergency without congestive heart failure: Plan: HTN emergency resolved. BPs much better. SBP was ~240 at peak; now in the 160-170 range today. Cont metoprolol xl 50mg BID. stop nitropaste. start lisinopril in am. Cardiology feels that the marked HTN was the likely cause of his chest symptoms yesterday. (2) Elevated troponin I level: Plan: Likely myocardial demand ischemia in the setting of #1. ACS felt less likely. Will d/c heparin infusion. Echo noted to have preserved EF with no wall motion abnormalities. (3) RUPAL (acute kidney injury): Plan: Cr improved from 1.8 to 1.3. Suspect due to #1. cannot rule out some element of obstruction from the left-sided ureteral stone. Repeat BMP am. (4) Chest pain: Plan: Resolved. Suspect due to #1. No recurrent symptoms since admission. No chest symptoms in the last few months leading up to yesterday's event. [id number], given his CAD risk factors - obesity, HTN, severe hyperlipidemia, family history, etc - would recommend stress test, perhaps in the week following discharge. Needs better BP control in the meantime. (5) LVH (left ventricular hypertrophy): Plan: 2nd to long-standing uncontrolled HTN. Rx - beta ethan, improved BP control. (6) Uncontrolled hypertension: Plan: Cont metoprolol xl 50mg BID. Add lisinopril 10mg qam. stop nitropaste. (7) Hyperglycemia: Plan: HbA1c pending to r/o pre-DM or T2DM. (8) Kidney stone on left side: Plan: large 1.1cm left-sided UPJ stone. no significant hydronephrosis and largely asymptomatic from this. spoke with Dr John from urology - his team will consult in am and make recommendations for Rx. ua without signs of infection. (9) Hypertriglyceridemia: Plan: SEVERE. level of 900. he denies heavy etoh consumption. he had a large meal yesterday evening prior to admission consisting of sausage and other fatty foods. this may have skewed his results. thus, will repeat his fasting triglycerides in the am. he is at high risk of pancreatitis with levels this high. if >300 would recommend Rx with fibrate and/or prescription fish oil. (10) Gallstones: Plan: could he have had a severe biliary colic attack last pm in the midst of his HTN emergency? no evidence of such on LFTs, however. follow. Admission and Anticipated Discharge Date Admission Date: May 30, 2021 Subjective Patient feeling well this am. NO chest pain, tightness or other symptoms since admission. He denies having had cardiopulmonary symptoms in the weeks/months leading up to this admission. Denies recent abdominal pain. He does confirm he has had kidney stones in the past. Does not follow with any specific urologist. He has had no urinary symptoms - no dysuria, hematuria, etc. Review of Systems Constitutional: no fever, no chills and no fatigue Respiratory: no dyspnea and no dyspnea on exertion Cardiovascular: as per Subjective / HPI; no chest pain, no orthopnea and no palpitations Gastrointestinal: no abdominal pain, no nausea and no vomiting Genitourinary: no dysuria, no difficulty urinating, no urinary frequency, no hematuria or no flank pain Results & Data Results & Data ([facility] [place]) Vital Signs (Past 12 Hours) Vital Signs Temp Pulse Pulse Resp BP Pulse Ox 05/30/21 16:00 68 05/30/21 15:56 36.6 C 57 L 18 161/84 H 93 05/30/21 12:10 36.7 C 53 L 18 163/84 H 91 05/30/21 08:15 36.7 C 66 18 173/89 H 93 Laboratory Results Laboratory Results - last 24 hr 05/30/21 05/30/21 05/30/21 00:40 00:40 00:40 WBC 8.04 RBC 5.59 Hgb 16.8 Hct 49.1 MCV 87.8 MCH 30.1 MCHC 34.2 RDW Std Deviation 41.8 RDW Coeff of Kenji 13.0 Plt Count 202 MPV 12.1 H Immature Gran % (Auto) 0.2 Neut % (Auto) 46.4 Lymph % (Auto) 37.8 Barnes % (Auto) 10.8 Eos % (Auto) 4.2 Baso % (Auto) 0.6 Neut # (Auto) 3.72 Lymph # (Auto) 3.04 Barnes # (Auto) 0.87 H Eos # (Auto) 0.34 Baso # (Auto) 0.05 Immature Gran # (Auto) 0.02 Absolute Nucleated RBC 0.06 H Nucleated RBC % (auto) 0.8 APTT PTT Ratio Sodium 140 Potassium Chloride 108 H Carbon Dioxide 28 Anion Gap 4.0 BUN 20 H Creatinine 1.82 H Est Cr Clr Drug Dosing 60.9 Est GFR ( Amer) 49.1 Est GFR (Non-Af Amer) 42.4 BUN/Creatinine Ratio 11.0 Glucose 127 H Estimat Average Glucose Pending Hemoglobin A1c Pending Calcium 8.5 Total Bilirubin 0.6 Direct Bilirubin TNP AST ALT 48 Alkaline Phosphatase 118 H Troponin I 0.073 H* Total Protein 7.7 Albumin 3.5 Triglycerides Cholesterol LDL Cholesterol, Calc VLDL Cholesterol, Calc HDL Cholesterol Cholesterol/HDL Ratio Lipase 231 Specimen Hemolysis Urine Color Urine Appearance Urine pH Ur Specific [place] Urine Protein Urine Glucose (UA) Urine Ketones Urine Blood Urine Nitrite Urine Bilirubin Urine Urobilinogen Ur Leukocyte Esterase Ur Random Microalbumin COVID-19 Eval Order SARS-CoV-2 (PCR) 05/30/21 05/30/21 05/30/21 01:06 01:06 02:28 WBC RBC Hgb Hct MCV MCH MCHC RDW Std Deviation RDW Coeff of Kenji Plt Count MPV Immature Gran % (Auto) Neut % (Auto) Lymph % (Auto) Barnes % (Auto) Eos % (Auto) Baso % (Auto) Neut # (Auto) Lymph # (Auto) Barnes # (Auto) Eos # (Auto) Baso # (Auto) Immature Gran # (Auto) Absolute Nucleated RBC Nucleated RBC % (auto) APTT PTT Ratio Sodium Potassium 4.4 Chloride Carbon Dioxide Anion Gap BUN Creatinine Est Cr Clr Drug Dosing Est GFR ( Amer) Est GFR (Non-Af Amer) BUN/Creatinine Ratio Glucose Estimat Average Glucose Hemoglobin A1c Calcium Total Bilirubin Direct Bilirubin AST 28 ALT Alkaline Phosphatase Troponin I Total Protein Albumin Triglycerides Cholesterol LDL Cholesterol, Calc VLDL Cholesterol, Calc HDL Cholesterol Cholesterol/HDL Ratio Lipase Specimen Hemolysis Urine Color Urine Appearance Urine pH Ur Specific [place] Urine Protein Urine Glucose (UA) Urine Ketones Urine Blood Urine Nitrite Urine Bilirubin Urine Urobilinogen Ur Leukocyte Esterase Ur Random Microalbumin COVID-19 Eval Order Covid19 at [facility] SARS-CoV-2 (PCR) NEGATIVE 05/30/21 05/30/21 05/30/21 02:28 03:50 03:50 WBC RBC Hgb Hct MCV MCH MCHC RDW Std Deviation RDW Coeff of Kenji Plt Count MPV Immature Gran % (Auto) Neut % (Auto) Lymph % (Auto) Barnes % (Auto) Eos % (Auto) Baso % (Auto) Neut # (Auto) Lymph # (Auto) Barnes # (Auto) Eos # (Auto) Baso # (Auto) Immature Gran # (Auto) Absolute Nucleated RBC Nucleated RBC % (auto) APTT PTT Ratio Sodium Potassium Chloride Carbon Dioxide Anion Gap BUN Creatinine Est Cr Clr Drug Dosing Est GFR ( Amer) Est GFR (Non-Af Amer) BUN/Creatinine Ratio Glucose Estimat Average Glucose Hemoglobin A1c Calcium Total Bilirubin Direct Bilirubin AST ALT Alkaline Phosphatase Troponin I Total Protein Albumin Triglycerides 904 H Cholesterol 193 LDL Cholesterol, Calc VLDL Cholesterol, Calc HDL Cholesterol 26 Cholesterol/HDL Ratio 7 Lipase Specimen Hemolysis Urine Color Yellow Urine Appearance Clear Urine pH 7.0 Ur Specific [place] 1.011 Urine Protein Negative Urine Glucose (UA) Negative Urine Ketones Negative Urine Blood Negative Urine Nitrite Negative Urine Bilirubin Negative Urine Urobilinogen Negative Ur Leukocyte Esterase Negative Ur Random Microalbumin 34.2 COVID-19 Eval Order SARS-CoV-2 (PCR) 05/30/21 05/30/21 05/30/21 08:42 08:42 14:37 WBC RBC Hgb Hct MCV MCH MCHC RDW Std Deviation RDW Coeff of Kenji Plt Count MPV Immature Gran % (Auto) Neut % (Auto) Lymph % (Auto) Barnes % (Auto) Eos % (Auto) Baso % (Auto) Neut # (Auto) Lymph # (Auto) Barnes # (Auto) Eos # (Auto) Baso # (Auto) Immature Gran # (Auto) Absolute Nucleated RBC Nucleated RBC % (auto) APTT 66.9 H* PTT Ratio 2.5 Sodium 140 Potassium 3.5 D Chloride 108 H Carbon Dioxide 27 Anion Gap 6.0 BUN 20 H Creatinine 1.34 D Est Cr Clr Drug Dosing 82.3 Est GFR ( Amer) 71.1 Est GFR (Non-Af Amer) 61.3 BUN/Creatinine Ratio 14.6 Glucose 154 H Estimat Average Glucose Hemoglobin A1c Calcium 8.2 L Total Bilirubin Direct Bilirubin AST ALT Alkaline Phosphatase Troponin I 0.053 H* 0.059 H* Total Protein Albumin Triglycerides Cholesterol LDL Cholesterol, Calc VLDL Cholesterol, Calc HDL Cholesterol Cholesterol/HDL Ratio Lipase Specimen Hemolysis Urine Color Urine Appearance Urine pH Ur Specific [place] Urine Protein Urine Glucose (UA) Urine Ketones Urine Blood Urine Nitrite Urine Bilirubin Urine Urobilinogen Ur Leukocyte Esterase Ur Random Microalbumin COVID-19 Eval Order SARS-CoV-2 (PCR) 05/30/21 14:37 WBC RBC Hgb Hct MCV MCH MCHC RDW Std Deviation RDW Coeff of Kenji Plt Count MPV Immature Gran % (Auto) Neut % (Auto) Lymph % (Auto) Barnes % (Auto) Eos % (Auto) Baso % (Auto) Neut # (Auto) Lymph # (Auto) Barnes # (Auto) Eos # (Auto) Baso # (Auto) Immature Gran # (Auto) Absolute Nucleated RBC Nucleated RBC % (auto) APTT 66.9 H* PTT Ratio 2.5 Sodium Potassium Chloride Carbon Dioxide Anion Gap BUN Creatinine Est Cr Clr Drug Dosing Est GFR ( Amer) Est GFR (Non-Af Amer) BUN/Creatinine Ratio Glucose Estimat Average Glucose Hemoglobin A1c Calcium Total Bilirubin Direct Bilirubin AST ALT Alkaline Phosphatase Troponin I Total Protein Albumin Triglycerides Cholesterol LDL Cholesterol, Calc VLDL Cholesterol, Calc HDL Cholesterol Cholesterol/HDL Ratio Lipase Specimen Hemolysis Urine Color Urine Appearance Urine pH Ur Specific [place] Urine Protein Urine Glucose (UA) Urine Ketones Urine Blood Urine Nitrite Urine Bilirubin Urine Urobilinogen Ur Leukocyte Esterase Ur Random Microalbumin COVID-19 Eval Order SARS-CoV-2 (PCR) PG Care Time/CCT Total # of Minutes Spent Total Time Spent with Patient: Total time spent is greater than 50% in coordination of care (as documented) at patient's floor/unit and/or counseling patient: Coding Level of Care Code 78389 Subseq Hosp Care Lvl 3 Diagnoses RUPAL (acute kidney injury) N17.9 Elevated troponin I level R77.8 Chest pain R07.9 LVH (left ventricular hypertrophy) I51.7 Hypertensive emergency without congestive heart failure I16.1 Uncontrolled hypertension I10 Hyperglycemia R73.9 Kidney stone on left side N20.0 Hypertriglyceridemia E78.1 Gallstones K80.20
[2021-05-31 06:02] LABS: Basophils # (auto) 0.04 K/uL (0-0.2); Basophils % (auto) 0.6 %; Eosinophils # (auto) 0.29 K/uL (0-0.5); Eosinophils % (auto) 4.1 %; Hematocrit (blood only) 48.2 % (42-52); Hemoglobin 16.1 g/dL (14.0-18.0); Immature Granulocytes # (auto) 0.02 K/uL (0.00-0.02); Immature Granulocytes % (auto) 0.3 %; Lymphocytes # (auto) 2.13 K/uL (1.2-3.4); Mean Corpuscular Hemoglobin 29.3 pg (25-34); Mean Corpuscular Hgb Conc 33.4 g/dL (32-36); Mean Corpuscular Volume 87.6 fL (80-100); Mean Platelet Volume 12.1 fL (7.4-10.4); Monocytes # (auto) 0.73 K/uL (0.11-0.59); Monocytes % (auto) 10.3 %; Neutrophils # (auto) 3.88 K/uL (1.4-6.5); Neutrophils % (auto) 54.7 %; Platelet Count 179 K/uL (130-400); RDW Coefficient of Variation 13.1 % (11.5-14.5); RDW Standard Deviation 42.3 fL (36.4-46.3); White Blood Count 7.09 K/uL (4.8-10.8)
[2021-05-31 06:45] LABS: Albumin Globulin Ratio 0.9 (0.9-2); Albumin Level 3.3 gm/dl (3.4-5.0); BUN Creatinine Ratio 13.4 (10-20); Calcium 8.7 mg/dl (8.5-10.1); Creatinine Clr Calc Pharmacy 90.1 ml/min; Est GFR (African American) 79.6 ml/min; Est GFR (Non-African American) 68.7 ml/min; Globulin 3.7 gm/dl (2.5-4.0); Magnesium 2.2 mg/dl (1.8-2.4); Potassium 4.1 mmol/L (3.5-5.1)
[2021-05-31 07:34] LABS: Estimated Average Glucose 123 mg/dl; Hemoglobin A1C 5.9 % (4.5-5.6)
[2021-05-31] MEDS: METOPROLOL SUCC 50MG EXT REL TAB PO SCH (08:21)
[2021-05-31] MEDS: ASPIRIN 81 MG ECTAB PO SCH (08:21)
[2021-05-31] MEDS ORDERED: lisinopril 10 MG TAB PO SCH (09:00)
--- NOTE | 2021-05-31 10:48 | XRay Report ---
XR KUB/Abdomen 1 view CLINICAL HISTORY: Nephrolithiasis COMPARISON STUDY: CT scan dated 05/30/2021 FINDINGS: There is a 12 mm calculus within the left upper quadrant at the L2 level consistent with a left UVJ calculus. There is no pathologic bowel dilatation. Pelvic basin calcifications are felt to r epresent phleboliths.. IMPRESSION: 1. Nonobstructive bowel gas pattern 2. 12 mm left UVJ calculus ACT 112: Negative or not required by law. Electronically signed by: Ganesh Roca M.D. 05/31/2021 10:47 AM
--- NOTE | 2021-05-31 10:56 | Urology Consultation ---
Date of Consultation May 31, 2021 Assessment & Plan (1) Kidney stone on left side: 50yo M admitted with elevated troponin level and uncontrolled hypertension and found incidentally to have a 1.1cm Left UPJ stone. - Plan of care reviewed with Dr. Trujillo, on-call urologist. - Patient is feeling well, no complaints of pain this morning. - Remains afebrile. Labs reviewed, Wbc stable and creatinine improved to 1.2 today (1.8 on admission). - Urinalysis on arrival was negative. - Discussed options for acute stone management with cystoscopy and stent placement. Discussed possible outpatient ESWL vs. Ureteroscopy. Stone free rates were also discussed as well as possibility of multiple procedures. Ureteral stents were discussed as well as post-operative issues and pain management. Risks and benefits of each were discussed. - Will check a KUB now to determine if he is a candidate for outpatient ESWL. - Given he is asymptomatic from a kidney stone standpoint with normal creatinine today, no acute intervention is warranted at this time - Will arrange outpatient follow-up for definitive stone management. - Reviewed in detail signs/symptoms that would warrant return to the hospital, patient verbalized an understanding. - Patient agreeable to plan, all questions were answered. - Please consult our service urgently if patient develops fever >101F, intractable pain or nausea, as this will necessitate urgent surgical intervention. - Thank you for allowing us to participate in the acute care of Mr. Encarnacion. Please reconsult us with additional questions, concerns or changes in patient status. History of Present Illness Reason for Consultation: 1.1cm L renal stone Attending Physician: Gianluca Ramirez MD History of Present Illness The patient is a 50 [id number] who presented to the ER with acute onset of substernal chest discomfort and was admitted with elevated troponin and uncontrolled hypertension. On presentation, the patient underwent a CT abdomen pelvis and was incidentally found to have a 1.1cm left ureteropelvic junction stone. Past medical hx includes nephrolithiasis Urology consulted for 1.1cm L UPJ stone Patient reports a hx of nephrolithiasis with previous spontaneous passage He has not seen a Urologist in the past On presentation to the ER, he was afebrile, Wbc 8.04, Hgb 16.8, Cr 1.82. Urinalysis clear. CTAP IMPRESSION: 1. 1.1 cm left ureteropelvic junction calculus. Minimal dilatation of the left renal pelvis without calyceal dilatation. 2. Small bilateral renal calculi. 3. Cholelithiasis. Pt examined at bedside this morning. Awake, resting comfortably in bed on arrival. He denies back, flank, and suprapubic pain at present. Denies fevers or chills. No nausea or vomiting. Tolerating PO diet. He denies hematuria and dysuria. Feels he is emptying his bladder well. Denies CP/SOB. Denies lightheadedness/dizziness. Overall, feeling well this morning and eager to go home. He does report a hx of stones requiring hospitalization in the past, however he was able to pass the stone on his own. He denies prior surgical intervention for stones. He denies recent stone pain or passage. He suspects he may have passed a small stone approximately 1 year ago, but has since remained asymptomatic from a kidney stone standpoint. Offers no additional complaints at present Allergies Allergy/AdvReac Type Severity Reaction Status Date / Time No Known Allergies Allergy Mild Unverified 05/30/21 02:30 Home Medications Medication Instructions Recorded Confirmed Type acetaminophen 500 mg tablet 1,000 mg PO Q6H PRN 05/30/21 05/30/21 History (Tylenol Extra Strength) lisinopril 10 mg tablet 10 mg PO QAM #30 tab 05/31/21 Rx metoprolol succinate 50 mg 50 mg PO BID #60 tab 05/31/21 Rx tablet,extended release 24 hr Patient History Medical History History of kidney stones Social History Smoking Status: Never smoker Hx Alcohol Use: No Hx Substance Use: No Preferred Language: French Communication Ability: Effective Recovery Unit Operator Required: No Beliefs That Will Affect Care: None Current Living Situation: Significant Other Feels Safe at Home: Yes Assistive Devices: None Review of Systems Review of Systems: All systems reviewed & are unremarkable except as noted in HPI & below Physical Exam Constitutional: well developed and well nourished; no acute distress and not ill appearing Respiratory: normal respiratory effort; no labored breathing and no audible wheezes Cardiovascular: Extremities: no calf tenderness Gastrointestinal (Abdomen): Percussion/Palpation: abdomen soft; abdomen nontender and no guarding Musculoskeletal: Head/Neck/Chest: normocephalic Skin: Warm and dry Neurologic: awake Psychiatric: Orientation: alert, oriented x 3 and cooperative Genitourinary: no CVA tenderness Results & Data ([facility]) Vital Signs (Past 12 Hours) Vital Signs Temp Pulse Pulse Resp BP Pulse Ox 05/31/21 09:50 61 05/31/21 07:47 36.7 C 66 18 145/95 H 94 05/31/21 03:45 36.7 C 65 18 157/90 H 96 05/30/21 23:58 50 L 05/30/21 23:30 36.6 C 59 L 18 155/90 H 95 PG Care Time/CCT Total # of Minutes Spent Total Time Spent with Patient: Total time spent is greater than 50% in coordination of care (as documented) at patient's floor/unit and/or counseling patient: Coding Level of Care Code 35770 Inpt Consult Level 3 Diagnoses Kidney stone on left side N20.0
[2021-05-31 11:04] LABS: Thyroid Stimulating Hormone 4.59 uIu/ml (0.300-4.500)
[2021-05-31 11:16] LABS: T4 Free Thyroxine 1.07 ng/dl (0.8-1.6)
--- NOTE | 2021-05-31 12:32 | Discharge Summary ---
Date of Service May 31, 2021 Admission HPI Per Admitting Provider The patient is a 50-year-old male with PMH significant for kidney stone a few years ago, who presents to the emergency department after developing acute onset of severe substernal chest discomfort shortly after going to bed this evening. He had his check his blood pressure at that time, and the systolic number was over 200s. He had not had his blood pressure checked since he had kidney stone assessment few years ago, and it was normal at that time. Patient denies any change in usual activities, dietary patterns or exercise patterns. He did have a cookout yesterday, but reports that he did keep up with his fluid intake. Significant laboratory work-up in the emergency department includes the following: Creatinine 1.82, glucose 127, troponin 0.073. COVID-19 test was negative. Initial vital signs in the emergency department while chest pain was still present, was 245/146, for which patient received labetalol 10 mg IV and aspirin 325 mg x 1. He was then started on heparin IV following bolus as ordered by the emergency department. Prior to leaving the emergency department, additional medication orders placed by me: Lopressor 5 mg IV x1 now, metoprolol succinate 50 mg p.o. x1 now, nitroglycerin paste, 1 inch anterior chest wall every 6 hours, and normal saline 1 L bolus. Admission Exam Per Admitting Provider The patient is awake, alert and oriented 3, well developed and well nourished, normocephalic and atraumatic, lying in bed and in no acute distress. HEENT--PERRL, EOMI, mucous membranes and oropharynx dry. Neck--supple. No JVD. No bruits. Thyroid normal, trachea midline, no adenopathy. Heart--normal S1 and S2. No murmurs, rubs or gallops. Lungs--clear bilaterally, no respiratory distress, no accessory muscle use. Abdomen--normal bowel sounds and soft. Nontender. Nondistended. Mildly obese Extremities--no cyanosis or clubbing. No edema. Dermatologic--normal skin turgor, normal color, no abnormal lymph nodes, no rash. Neurologic--cranial nerves II through XII grossly intact. Rheumatologic--normal range of motion. Psychiatric--normal affect. Principal Diagnosis Hypertensive emergency Incidental ureterolithiasis (kidney stone) Discharge Exam Constitutional WD/WN, vitals as above + obese ENMT external ear and nose normal, oropharynx normal Respiratory normal respiratory effort, lungs clear to auscultation Cardiovascular RRR, no murmur, no edema Gastrointestinal (Abdomen) normal bowel sounds, soft, nontender, no hepatosplenomegaly Genitourinary no CVA tenderness Discharge Data Allergies Allergy/AdvReac Type Severity Reaction Status Date / Time No Known Allergies Allergy Mild Unverified 05/30/21 02:30 Consultations 05/30/21 02:23 ED Decision to Admit Stat 05/30/21 05:47 Consult Cardiology Routine 05/30/21 11:26 Consult Urology Routine Ordered Studies 05/30/21 04:08 CT abd pelvis wo con Urgent IMPRESSION: 1. 1.1 cm left ureteropelvic junction calculus. Minimal dilatation of the left renal pelvis without calyceal dilatation. 2. Small bilateral renal calculi. 3. Cholelithiasis. Hospital Course (1) Hypertensive emergency without congestive heart failure: (2) Elevated troponin I level: (3) RUPAL (acute kidney injury): (4) Chest pain: (5) LVH (left ventricular hypertrophy): (6) Uncontrolled hypertension: (7) Hyperglycemia: (8) Kidney stone on left side: (9) Hypertriglyceridemia: (10) Gallstones: Sean Encarnacion is a 50 year old male admitted to [facility] from May 30-2020 due to chest pain and hypertensive emergency with corresponding mildly elevated troponin. This was treated with IV labetalol, topical nitroglycerin, metoprolol and lisinopril. Echocardiogram showed moderate concentric left ventricular hypertrophy consistent with high blood pressure but no wall motion abnormalities. He was reviewed with cardiology and no further ischemic workup warranted at this time. BP 158/91 on discharge after nitroglycerin removed. He should follow up with his PCP for primary cardiovascular disease prevention management with lipid testing and diabetes testing as needed. HBA1C here 5.9% suggesting at risk of diabetes. Dietary chagnes recommended at this stage. He was also incidentally noted to have a 1.1 cm left ureteral stone noted on imaging. Urology consulted and recommended following up as an outpatient. Total Time Total Time Spent Total Time Spent (In Minutes): 40 Discharge Plan Discharge Items Patient Disposition: Home - Self-Care Reason For Visit: ELEVATED TROPONIN,RENAL INSUFFICIENCY,CHEST PAIN Discharge Diagnosis: Hypertensive emergency Incidental ureterolithiasis (kidney stone) Activity: Resume your previous activity Non-emergency contact: Primary Care Provider Call non-emergency contact if: you have any medication questions and your symptoms worsen Follow-up/Referrals: Isabel Sharma CRNP [Nurse Practitioner] - (to be arranged by urology) PCP,NO [Primary Care Provider] - Diet: Heart Healthy Addtl Attending Provider Instructions: You were admitted to [facility] from May 30-2020 due to chest pain and severely high blood pressure. You were diagnosed with hypertensive emergency with corresponding mildly elevated troponin (heart enzyme). This was treated with anti-hypertensives and you will be discharged with metoprolol and lisinopril. Echocardiogram showed moderate concentric left ventricular hypertrophy consistent with high blood pressure causing manager long term care strain on your heart but no findings concerning for coronary artery disease or a heart attack. Please continue primary cardiovascular disease prevention management with your primary care physician with lipid testing and diabetes testing as needed. Your HBA1C was 5.9% suggesting you are at risk of diabetes. Recommend diet changes as per supplemental hand outs below as initial management. You were also incidentally noted to have a 1.1 cm left ureteral stone noted on imaging. You were reviewed by urology and appointment to be arranged. If you do not hear anything in the next 1-2 days then please call the number for the urolo gy office above. Kind regards, Dr Gianluca Ramirez Pending Studies at Discharge: No Stand-Alone Forms: My [facility], Smoking Cessation Medications and DC Order Prescriptions: New lisinopril 10 mg Tablet 10 mg PO QAM Qty: 30 RF: 0 metoprolol succinate 50 mg Tablet Extended Release 24 Hr 50 mg PO BID Qty: 60 RF: 0 Continued acetaminophen [Tylenol Extra Strength] 500 mg Tablet 1,000 mg PO Q6H PRN (Reason: Pain) RF: 0 Discharge Orders: Discharge Order (Routine); Ordered 05/31/21 Ordered By: Gianluca Farmer/Other Patient Handouts: ED High Blood Pressure ... Admission Data Admit Date/Time: 05/30/21 03:49 Attending Provider: Gianluca Ramirez Admit Provider: Nba Church Primary Care Provider: PCP,NO Other Providers: Nba Church ; Tejinder Mcghee ; Galindo John Other Interventions: Discharge Summary Assessment (RN) Last Done: 05/31/21 12:36 Coding Level of Care Code D/C DAY MANAGEMENT >30 MINS Diagnoses Hypertensive emergency without congestive heart failure I16.1 Elevated troponin I level R77.8 RUPAL (acute kidney injury) N17.9 Chest pain R07.9 LVH (left ventricular hypertrophy) I51.7 Uncontrolled hypertension I10 Hyperglycemia R73.9 Kidney stone on left side N20.0 Hypertriglyceridemia E78.1 Gallstones K80.20
--- NOTE | 2021-05-31 13:07 | Electrocardiogram Report ---
Test Reason : Blood Pressure : / mmHG Vent. Rate : 102 BPM Atrial Rate : 104 BPM P-R Int : 156 ms QRS Dur : 100 ms QT Int : 352 ms P-R-T Axes : 040 026 033 degrees QTc Int : 458 ms Normal sinus rhythm with frequent Premature ventricular complexes Otherwise normal ECG No previous ECGs available Confirmed by Obed Ovalles ([id number]) on 05/31/2021 1:06:53 PM Referred By: REFERRED SELF Confirmed By:Obed Ovalles
--- NOTE | 2021-05-31 13:08 | Electrocardiogram Report ---
Test Reason : Blood Pressure : / mmHG Vent. Rate : 069 BPM Atrial Rate : 069 BPM P-R Int : 164 ms QRS Dur : 106 ms QT Int : 400 ms P-R-T Axes : 038 029 035 degrees QTc Int : 428 ms Normal sinus rhythm Normal ECG When compared with ECG of 30-MAY-2021 00:40, (unconfirmed) Premature ventricular complexes no longer present Confirmed by Obed Ovalles ([id number]) on 05/31/2021 1:07:59 PM Referred By: REFERRED SELF Confirmed By:Obed Ovalles
--- NOTE | 2021-05-31 13:26 | Electrocardiogram Report ---
Test Reason : Blood Pressure : / mmHG Vent. Rate : 065 BPM Atrial Rate : 065 BPM P-R Int : 166 ms QRS Dur : 108 ms QT Int : 430 ms P-R-T Axes : 021 003 020 degrees QTc Int : 447 ms Normal sinus rhythm Normal ECG When compared with ECG of 30-MAY-2021 05:30, (unconfirmed) No significant change was found Confirmed by Obed Ovalles ([id number]) on 05/31/2021 1:26:24 PM Referred By: REFERRED SELF Confirmed By:Obed Ovalles
== END 2021-05-31 14:11 | disposition home or self-care (01) | DRG 305 ==
LOC: ED 00:26 → 2S 03:49 → SUATTDRO 03:49 → 2S 05:51